=== PATIENT | male | born 1980 | race Caucasian/White ===

== ENCOUNTER 2019-01-20 08:09 | Emergency (ER) | payer OTHER ==
[2019-01-20 08:25] VITALS: BP 145/94
[2019-01-20] MEDS ORDERED: TETANUS/DIPHTHERIA/PERTUSSIS 0.5 ML SYRINGE IM ONE (08:36)
--- NOTE | 2019-01-20 08:39 | ED Physician Documentation ---
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 He is right-hand dominant. The incident occurred just prior to arrival. Last tetanus booster unknown. Review of Systems Constitutional: denies: Fever Skin: reports: Laceration (s). denies: Rash Neurologic: denies: Focal weakness, Numbness PD PAST MEDICAL HISTORY - Past Medical History Endocrine/Autoimmune: None - Present Medications Home Medications: Ambulatory Orders Medication Instructions Recorded Confirmed Albuterol Sulf [Ventolin Hfa 1 puffs PO PRN PRN 01/20/19 01/20/19 Inhaler] - Allergies Allergies/Adverse Reactions: Allergies Allergy/AdvReac Type Severity Reaction Status Date / Time Penicillins Allergy Unknown Verified 01/20/19 08:25 PD ED PE NORMAL - Vitals Vital signs reviewed: Yes (Initially hypertensive) - General General: Alert and oriented X 3, Well developed/nourished - HEENT HEENT: Atraumatic - Respiratory Respiratory: No respiratory distress - Derm Derm: No rash - Extremities Extremities: Other (There is a small laceration, about 1/2 cm on the ulnar aspect of the right hand. The wound edges are well opposed. He has full flexion and extension of the DIP, PIP, and MCP joints of the little finger, against resistance. Distal neurovascular is intact.) - Neuro Neuro: Alert and oriented X 3, No motor deficit, No sensory deficit Results - Vitals Vitals: Vital Signs - 24 hr 01/20/19 08:20 Temperature 37.0 C Heart Rate 70 Respiratory 16 Rate Blood Pressure 145/94 H O2 Saturation 95 Oxygen O2 Source Room air Procedures - Laceration (location) Right hand Length in cm: 0.5 Wound type: Linear Neurovascular status: Sensory intact, Motor intact, Vascular intact Tendon involvement: Tendon intact Wound Preparation: Hibiclens, Irrigated copiously NS, Wound explored, To the base. No: FB identified Skin layer closure: Dermabond Other: Patient tolerated well, No complications, Neurovascular intact, Dressing applied, Tetanus booster given Complexity: Simple PD MEDICAL DECISION MAKING - ED course Complexity details: considered differential, d/w patient, other (An L&I form was completed.) ED course: The patient's presentation is significant for a minor laceration on the ulnar aspect of the right hand. There is no evidence of foreign body, or nerve deficit. Treatment in the emergency department included cleaning of the wound, and repair using Dermabond. A tetanus booster was administered. I discussed with him the expected course of healing, as well as potentially worrisome signs or symptoms that should prompt reevaluation in the emergency department. An L&I form was completed. Departure - Departure Disposition: Home, Self Care Clinical Impression: Hand laceration Qualifiers: Encounter type: initial encounter Foreign body presence: without foreign body Laterality: right Qualified Code(s): S61.411A - Laceration without foreign body of right hand, initial encounter Condition: Stable Instructions: ED Laceration Hand Follow-Up: Ede Peralta MD [Primary Care Provider] - Comments: Keep the wound clean. You can use Tylenol or ibuprofen if needed for discomfort. Follow-up with your primary physician or return to the emergency department if you develop any sign of infection, or otherwise worsening symptoms. Discharge Date/Time: 01/20/19 08:56
== END 2019-01-20 08:56 | disposition home or self-care (01) ==
LOC: ED 08:09
DX: S61.411A Laceration without foreign body of right hand, initial encounter (principal); W26.0XXA Contact with knife, initial encounter; Y93.89 Activity, other specified; Y99.0 Civilian activity done for income or pay
CPT/HCPCS: 1040M; 12001; 90715; 99282; 99283